=== PATIENT | male | born 1980 | race American Indian/Alaskan Native ===

== ENCOUNTER 2018-12-28 22:34 | Emergency (ER) | payer MEDICAID, OTHER ==
[2018-12-28 23:27] VITALS: BP 116/77; PULSE 96
[2018-12-29] MEDS ORDERED: Sodium Chloride 0.9% 1,000 ML IV ONE (00:35)
[2018-12-29] MEDS ORDERED: Insulin Regular, Human 100 Units/ML 3 ML Vial IV ONE (01:06)
[2018-12-29 01:18] LABS: ANION GAP 15.7; CHLORIDE,CL 88 mmol/L (101-111); SODIUM,NA 129 mmol/L (135-145)
--- NOTE | 2018-12-29 02:15 | EDM.PDOC ---
ED HPI GENERAL MEDICAL PROBLEM - General Chief Complaint: Diabetic Complaint Stated Complaint: DIZZY, SICK Time Seen by Provider: 12/28/18 23:20 Source of Information: Reports: Patient History Limitations: Reports: No Limitations - History of Present Illness INITIAL COMMENTS - FREE TEXT/NARRATIVE: c/o blood sugar being high. Initial insulin start date one week ago. Noted weight loss since August but during workup for gallbladder problems found he was diabetic. Since staerting insulin, blood sugars have been well over 400, tonight at work 586, felt dizzy at time. 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: Other (see below) Other Treatments BUTCHER ASSISTANT: none Right Temporal Pain Score (Numeric/FACES): 4 - Related Data Allergies Allergy/AdvReac Type Severity Reaction Status Date / Time naproxen Allergy Intermediate Hives Verified 12/28/18 23:27 cyclobenzaprine HCl AdvReac Intermediate Stomach Verified 12/28/18 23:27 [From Flexeril] Ache Home Meds: Home Meds Fenofibrate Nanocrystallized [Fenofibrate] 145 mg PO DAILY 12/28/18 [History] Insulin Glarg,Human.Rec.Analog [Lantus] 0 unit SQ BID 12/28/18 [History] Lisinopril 2.5 mg PO DAILY 12/28/18 [History] metFORMIN [Glucophage XR] 500 mg PO BIDMEALS 12/28/18 [History] Past Medical History - Past Health History Medical/Surgical History: Denies Medical/Surgical History Endocrine/Metabolic History: Reports: Diabetes, Type II Social & Family History - Family History Family Medical History: Noncontributory - Tobacco Use Smoking Status *Q: Unknown Ever Smoked - Caffeine Use Caffeine Use: Reports: Tea - Recreational Drug Use Recreational Drug Use: No ED ROS GENERAL - Review of Systems Review Of Systems: ROS reveals no pertinent complaints other than HPI. ED EXAM GENERAL NO PERIP PULSE - Physical Exam Exam: See Below Exam Limited By: No Limitations General Appearance: Alert, No Apparent Distress Eye Exam: Bilateral Eye: EOMI Ears: Normal External Exam, Hearing Grossly Normal Nose: Normal Mucosa Throat/Mouth: Normal Inspection. No: Normal Teeth (poor dentation) Head: Atraumatic, Normocephalic Neck: Normal Inspection Respiratory/Chest: No Respiratory Distress, Lungs Clear Cardiovascular: Normal Peripheral Pulses GI/Abdominal: Soft, Non-Tender Neurological: Alert, Oriented, Normal Cognition Psychiatric: Normal Affect, Normal Mood Skin Exam: Warm, Dry, Intact, Normal Color Course - Vital Signs Last Recorded V/S: Last Vital Signs Temp 97.2 F 12/28/18 23:11 Pulse 96 12/28/18 23:11 Resp 16 12/28/18 23:11 BP 116/77 12/28/18 23:11 Pulse Ox 100 12/28/18 23:11 - Orders/Labs/Meds Orders: Active Orders 24 hr Category Date Time Status Blood Glucose Check, Bedside [RC] ONETIME Care 12/28/18 23:37 Active Glucose [Blood Glucose Check, Bedside] [RC] ONETIME Care 12/29/18 01:54 Active Labs: Laboratory Tests 12/28/18 12/29/18 12/29/18 Range/Units 23:16 00:16 00:50 WBC 6.4 (5.0-10.0) 10^3/uL RBC 4.61 (4.6-6.2) 10^6/uL Hgb 13.7 L (14.0-18.0) g/dL Hct 39.1 L (40.0-54.0) % MCV 84.8 (80-100) fL MCH 29.7 (27.0-34.0) pg MCHC 35.0 (33.0-35.0) g/dL Plt Count 239 (150-450) 10^3/uL Neut % (Auto) 45.2 (42.2-75.2) % Lymph % (Auto) 44.9 (20.5-50.1) % [place] % (Auto) 7.9 (2-8) % Eos % (Auto) 1.7 (1.0-3.0) % Baso % (Auto) 0.3 (0.0-1.0) % Sodium (135-145) mmol/L Potassium (3.6-5.0) mmol/L Chloride (101-111) mmol/L Carbon Dioxide (21.0-31.0) mmol/L Anion Gap BUN (7-18) mg/dL Creatinine (0.6-1.3) mg/dL Est Cr Clr Drug Dosing mL/min Estimated GFR (MDRD) BUN/Creatinine Ratio Glucose (74-105) mg/dL POC Glucose 419 H* 408 H* (70-105) mg/dl Lactic Acid (0.5-2.2) mmol/L Calcium (8.4-10.2) mg/dl Total Bilirubin (0.2-1.0) mg/dL AST (10-42) IU/L ALT (10-60) IU/L Alkaline Phosphatase (42-121) IU/L Total Protein (6.7-8.2) g/dl Albumin (3.2-5.5) g/dl Globulin Albumin/Globulin Ratio Ketones 12/29/18 12/29/18 12/29/18 Range/Units 00:50 00:50 02:08 WBC (5.0-10.0) 10^3/uL RBC (4.6-6.2) 10^6/uL Hgb (14.0-18.0) g/dL Hct (40.0-54.0) % MCV (80-100) fL MCH (27.0-34.0) pg MCHC (33.0-35.0) g/dL Plt Count (150-450) 10^3/uL Neut % (Auto) (42.2-75.2) % Lymph % (Auto) (20.5-50.1) % [place] % (Auto) (2-8) % Eos % (Auto) (1.0-3.0) % Baso % (Auto) (0.0-1.0) % Sodium 129 L (135-145) mmol/L Potassium 3.7 (3.6-5.0) mmol/L Chloride 88 L (101-111) mmol/L Carbon Dioxide 29.0 (21.0-31.0) mmol/L Anion Gap 15.7 BUN 18 (7-18) mg/dL Creatinine 0.8 (0.6-1.3) mg/dL Est Cr Clr Drug Dosing 119.94 mL/min Estimated GFR (MDRD) > 60 BUN/Creatinine Ratio 22.50 Glucose 396 H (74-105) mg/dL POC Glucose 274 H (70-105) mg/dl Lactic Acid 0.8 (0.5-2.2) mmol/L Calcium 8.7 (8.4-10.2) mg/dl Total Bilirubin 1.0 (0.2-1.0) mg/dL AST 18 (10-42) IU/L ALT 16 (10-60) IU/L Alkaline Phosphatase 117 (42-121) IU/L Total Protein 7.1 (6.7-8.2) g/dl Albumin 3.9 (3.2-5.5) g/dl Globulin 3.2 Albumin/Globulin Ratio 1.22 Ketones Negative Meds: Medications Discontinued Medications Generic Name Dose Route Start Last Admin Trade Name Freq PRN Reason Stop Dose Admin Sodium Chloride 1,000 mls @ 500 mls/hr 12/29/18 00:35 12/29/18 00:52 Normal Saline IV 12/29/18 02:34 500 mls/hr .BOLUS ONE Administration Insulin Human Regular 5 unit 12/29/18 01:06 12/29/18 01:15 Humulin R IV 12/29/18 01:07 5 units ONETIME ONE Administration Departure - Departure Time of Disposition: 02:13 Disposition: Home, Self-Care 01 Condition: Good Clinical Impression: Hyperglycemia - Discharge Information *PRESCRIPTION DRUG MONITORING PROGRAM REVIEWED*: No *COPY OF PRESCRIPTION DRUG MONITORING REPORT IN PATIENT GUILLERMO: No Instructions: Hyperglycemia Forms: ED Department Discharge Additional Instructions: watch diet check blood sugars Increase insulin to 12 units at bed - My Orders Last 24 Hours: My Active Orders 12/28/18 23:37 Blood Glucose Check, Bedside [RC] ONETIME 12/29/18 01:54 Glucose [Blood Glucose Check, Bedside] [] ONETIME - Assessment/Plan Last 24 Hours: My Active Orders 12/28/18 23:37 Blood Glucose Check, Bedside [RC] ONETIME 12/29/18 01:54 Glucose [Blood Glucose Check, Bedside] [] ONETIME
== END 2018-12-29 02:23 | disposition home or self-care (01) ==
LOC: DL.ED 22:34
DX: E11.65 Type 2 diabetes mellitus with hyperglycemia (principal); Z79.899 Other long term (current) drug therapy; Z88.6 Allergy status to analgesic agent; Z88.8 Allergy status to other drugs, medicaments and biological substances; Z79.4 Long term (current) use of insulin
CPT/HCPCS: 36415; 80053; 82009; 82962; 83605; 85025; 96360; 99284; J1815; J7030

== ENCOUNTER 2019-01-15 06:49 | Day surgery (SDC) | payer MEDICAID, OTHER ==
[~2019-01-15 06:49] MED LIST: Dextrose 5%-0.45% NaCl 1,000 ML IV SCH; Midazolam 1 MG/ML 2 ML SDV ONE; Sodium Chloride 0.9% 10 ML Syringe FLUSH PRN; fentaNYL 100 MCG/2 ML SDV ONE
[2019-01-15] MEDS ORDERED: Midazolam 1 MG/ML 2 ML SDV IV ONE ×7 (06:50→08:32)
[2019-01-15] MEDS ORDERED: fentaNYL 100 MCG/2 ML SDV IV ONE ×3 (06:50→08:25)
[2019-01-15] MEDS ORDERED: Midazolam 1 MG/ML 2 ML SDV ONE (09:04)
[2019-01-15 10:04] VITALS: BP 84/61; PULSE 71
--- NOTE | 2019-01-15 15:04 | OR ---
DATE: 01/15/2019 PROCEDURE PERFORMED: Total colonoscopy, NBI, and cold snare polypectomy. INSTRUMENT USED: [id number] Olympus video colonoscope. PREMEDICATIONS: Fentanyl 100 mcg intravenous, Versed 4 mg intravenous. The procedure was done under pulse oximetry, BP recording, and awake overnight monitor. INDICATION: The patient with rectal bleeding, abdominal pain, and progressive weight loss. Colonoscopic examination is done for detection of any polypoid lesions and removal, endoscopic hemostasis therapy if needed. DESCRIPTION OF PROCEDURE: Initial rectal exam was unremarkable. Rigid anoscopy showed small internal hemorrhoids with no bleeding from them. The colonoscope was passed with ease up to the ileocecal area. Photographs were taken of the cecum identified by landmarks of appendiceal orifice and double-bulged ileocecal folds. In the distal descending colon, 5 mm sized benign-appearing polyp was noted. NBI views were obtained. Cold snare polypectomy was done. The tissue was retrieved and sent for histopathology. No bleeding was noted from any of the visualized areas at the commencement of the examination. There was large amount of solid fecal material, especially in the right colon preventing adequate visualization of the areas. [place] preparation scale 1 in most of the regions. No stricture. No vascular ectasia. No large isolated ulcerations seen. No evidence of diffuse inflammatory bowel disease in the form of friability, contact bleeding, or ulcerations. Probing the proximal sides of the folds and flexures using adequate distention and clearing up the stool material, withdrawal of the scope was made. No bleeding was noted from any of the visualized areas at the completion of examination. IMPRESSION: 1. Internal hemorrhoids. 2. Descending colon polyp. The patient tolerated the procedure well. [facility] /[id number]
== END 2019-01-15 10:50 | disposition home or self-care (01) ==
LOC: DL.ENDO 06:49
PROVIDERS: ATTEND Internal Medicine Gastroenterology
DX: K62.5 Hemorrhage of anus and rectum (principal); D12.4 Benign neoplasm of descending colon; K64.8 Other hemorrhoids; E11.9 Type 2 diabetes mellitus without complications; E78.1 Pure hyperglyceridemia; E66.09 Other obesity due to excess calories; Z88.8 Allergy status to other drugs, medicaments and biological substances; Z88.6 Allergy status to analgesic agent; Z68.27 Body mass index [BMI] 27.0-27.9, adult
CPT/HCPCS: 45385; J2250; J3010; J7042

== ENCOUNTER 2019-11-03 16:25 | Emergency (ER) | payer MEDICAID, OTHER ==
[2019-11-03 17:09] VITALS: BP 128/77; PULSE 88
--- NOTE | 2019-11-03 17:16 | CR ---
PROCEDURE INFORMATION: Exam: XR Chest, 1 View Exam date and time: 11/03/2019 5:07 PM Age: 39 years old Clinical indication: Other: Recurrent near syncope TECHNIQUE: Imaging protocol: XR of the chest Views: 1 view. COMPARISON: No relevant prior studies available. FINDINGS: Lungs: Unremarkable. No consolidation. Pleural space: Unremarkable. No pleural effusion. No pneumothorax. Heart/Mediastinum: Unremarkable. No cardiomegaly. Bones/joints: Unremarkable. IMPRESSION: No acute findings.
[2019-11-03] MEDS ORDERED: Meclizine 12.5 MG Tab PO ONE ×2 (17:19→17:26)
[2019-11-03] MEDS ORDERED: Sodium Chloride 0.9% 10 ML Syringe FLUSH PRN (17:19)
[2019-11-03] MEDS ORDERED: Sodium Chloride 0.9% 1,000 ML IV ONE (17:19)
[2019-11-03] MEDS ORDERED: Dexamethasone 4 MG/ML SDV IVPUSH ONE (17:20)
[2019-11-03 17:28] LABS: ANION GAP 12.3 mEq/L (7-13); CHLORIDE,CL 99 mmol/L (98-107); SODIUM,NA 135 mmol/L (136-145)
[2019-11-03] MEDS ORDERED: Sodium Chloride 0.9% 1,000 ML IV SCH (17:30)
--- NOTE | 2019-11-03 18:10 | EDM.PDOC ---
Scribed by Chen Courtney 11/03/19 [id number] for Phillip Daniels MD ED HPI GENERAL MEDICAL PROBLEM - General Chief Complaint: Neuro Symptoms/Deficits Stated Complaint: LIGHTHEADED SEEING WHITE SPOTS Time Seen by Provider: 11/03/19 16:57 Source of Information: Reports: Patient, RN, RN Notes Reviewed History Limitations: Reports: No Limitations - History of Present Illness INITIAL COMMENTS - FREE TEXT/NARRATIVE: Patient presents to ED by POV stating he was at work and began to have intermittent dizziness and seeing occasional spots. Denies any head injury, headache or visual changes. Patient states that he had "room spin dizziness" and felt that he might tip over because he could not tell, which end was up. He reports having intense nausea associated with the dizziness but did not vomit. Denies any history of vertigo, sinus or ear problems. Patient states that when he gets dizzy he seems to always tip to the left. Onset: Today Duration: Constant Severity: Moderate Improves with: Reports: None Worsens with: Reports: None Associated Symptoms: Reports: No Other Symptoms - Related Data Allergies Allergy/AdvReac Type Severity Reaction Status Date / Time naproxen Allergy Intermediate Hives Verified 11/03/19 16:54 cyclobenzaprine HCl AdvReac Intermediate Stomach Verified 11/03/19 16:54 [From Flexeril] Ache methocarbamol AdvReac Intermediate Nausea Verified 11/03/19 16:54 Home Meds: Home Meds Fenofibrate Nanocrystallized [Fenofibrate] 145 mg PO DAILY 12/28/18 [History] Insulin Glarg,Human.Rec.Analog [Lantus] 12 unit SQ BEDTIME 12/28/18 [History] lisinopriL [Lisinopril] 2.5 mg PO DAILY 12/28/18 [History] metFORMIN [Glucophage XR] 1,000 mg PO BIDMEALS 12/28/18 [History] Buprenorphine HCl/Naloxone HCl [Zubsolv 0.7-0.18 mg Tablet Sl] 1 tab SL ASDIRECTED 01/13/19 [History] Insulin Aspart [NovoLOG] 10 units SQ TIDMEALS 01/13/19 [History] Ondansetron [Zofran] 4 mg PO Q8H PRN 01/13/19 [History] Pantoprazole Sodium [Protonix] 40 mg PO BID 01/13/19 [History] Bismuth Subsalicylate [Pepto-Bismol] 262 mg PO QID 02/25/19 [History] Tetracycline HCl 500 mg PO QID 02/25/19 [History] metroNIDAZOLE [Metronidazole] 500 mg PO TID 02/25/19 [History] Past Medical History - Past Health History Medical/Surgical History: Denies Medical/Surgical History HEENT History: Reports: None Other HEENT History: missing front teeth Cardiovascular History: Reports: High Cholesterol, Hypertension Respiratory History: Reports: None Gastrointestinal History: Reports: GERD, Other (See Below) Other Gastrointestinal History: small amount bright red blood in stool Genitourinary History: Reports: None Musculoskeletal History: Reports: Back Pain, Chronic, Other (See Below) Other Musculoskeletal History: LEFT KNEE PAIN Neurological History: Reports: None Psychiatric History: Reports: Anxiety Endocrine/Metabolic History: Reports: Diabetes, Type II Hematologic History: Reports: None Immunologic History: Reports: None Oncologic (Cancer) History: Reports: None Dermatologic History: Reports: None - Infectious Disease History Infectious Disease History: Reports: Chicken Pox - Past Surgical History Head Surgeries/Procedures: Reports: None HEENT Surgical History: Reports: None Cardiovascular Surgical History: Reports: None GI Surgical History: Reports: Colonoscopy, EGD Male Surgical History: Reports: None Musculoskeletal Surgical History: Reports: Arthroscopic Procedure Social & Family History - Family History Family Medical History: Noncontributory - Caffeine Use Caffeine Use: Reports: Energy Drinks Other Caffeine Use: 1 a week ED ROS GENERAL - Review of Systems Review Of Systems: Comprehensive ROS is negative, except as noted in HPI. ED EXAM, NEURO - Physical Exam Exam: See Below Exam Limited By: No Limitations General Appearance: Alert, WD/WN, No Apparent Distress Eye Exam: Bilateral Eye: EOMI, Nystagmus (left lateral gaze), PERRL Ears: Normal External Exam, Normal Canal, Hearing Grossly Normal, Normal TMs Nose: Normal Inspection, Normal Mucosa, No Blood Throat/Mouth: Normal Lips, Normal Oropharynx, Normal Voice, No Airway Compromise , Other (dry oral membranes) Head Exam: Atraumatic, Normocephalic Neck: Normal Inspection, Supple, Non-Tender, Full Range of Motion. No: Carotid Bruit, Lymphadenopathy (L), Lymphadenopathy (R) Respiratory/Chest: No Respiratory Distress, Lungs Clear, Normal Breath Sounds, No Accessory Muscle Use, Chest Non-Tender Cardiovascular: Normal Peripheral Pulses, Regular Rate, Rhythm, No Edema, No Gallop, No JVD, No Murmur, No Rub GI/Abdominal: Normal Bowel Sounds, Soft, Non-Tender, No Organomegaly, No Distention, No Abnormal Bruit, No Mass Neurological: Normal Dorsiflexion, Normal Plantar Flexion, No Motor/Sensory Deficits, Oriented x 3, Other (CN II-XII intact with the exception of left lateral gaze nystagmus which was reproducible and induced dizziness. ) Back Exam: Normal Inspection Extremities: Normal Inspection Psychiatric: Normal Affect, Normal Mood Skin Exam: Warm, Dry, Intact, Normal Color, No Rash EKG INTERPRETATION EKG Date: 11/03/19 Time: 16:55 Rhythm: Other (sinus rhythm) Rate (Beats/Min): 76 [place]: LAD-Left [place] Deviation P-Wave: Present QRS: Normal ST-T: Normal QT: Normal Course - Vital Signs Last Recorded V/S: Last Vital Signs Temp 98.1 F 11/03/19 16:56 Pulse 88 11/03/19 16:56 Resp 18 11/03/19 16:56 BP 128/77 11/03/19 16:56 Pulse Ox 99 11/03/19 16:56 Orthostatic Blood Pressure [ 134/82 Standing] Orthostatic Blood Pressure [ 125/80 Sitting] Orthostatic Blood Pressure [ 128/77 Supine] - Orders/Labs/Meds Orders: Active Orders 24 hr Category Date Time Status EKG Documentation Completion [RC] STAT Care 11/03/19 16:54 Active Peripheral IV Care [RC] . DIRECTED Care 11/03/19 17:19 Active UA RFX TASHI AND CULT IF INDIC [URIN] Stat Lab 11/03/19 16:55 Ordered Sodium Chloride 0.9% [Normal Saline] 1,000 ml Med 11/03/19 17:19 Active IV .BOLUS Sodium Chloride 0.9% [Normal Saline] 1,000 ml Med 11/03/19 17:30 Active IV ASDIRECTED Sodium Chloride 0.9% [Saline Flush] Med 11/03/19 17:19 Active 10 ml FLUSH ASDIRECTED PRN Peripheral IV Insertion Adult [OM.PC] Stat Oth 11/03/19 17:16 Ordered Medication Orders Sodium Chloride (Normal Saline) 1,000 mls @ 999 mls/hr IV ASDIRECTED LO Last Admin: 11/03/19 17:18 Dose: 999 mls/hr Documented by: LASHONDA Sodium Chloride (Normal Saline) 1,000 mls @ 999 mls/hr IV .BOLUS ONE Stop: 11/03/19 18:19 Last Admin: 11/03/19 17:26 Dose: Not Given Documented by: LASHONDA Sodium Chloride (Saline Flush) 10 ml FLUSH ASDIRECTED PRN PRN Reason: Keep Vein Open Last Admin: 11/03/19 17:49 Dose: 10 ml Documented by: LASHONDA Labs: Laboratory Tests 11/03/19 11/03/19 11/03/19 Range/Units 17:01 17:01 17:01 WBC 9.0 (5.0-10.0) 10^3/uL RBC 4.92 (4.6-6.2) 10^6/uL Hgb 13.7 L (14.0-18.0) g/dL Hct 41.1 (40.0-54.0) % MCV 83.5 (80-100) fL MCH 27.8 (27.0-34.0) pg MCHC 33.3 (33.0-35.0) g/dL Plt Count 302 (150-450) 10^3/uL Neut % (Auto) 68.9 (42.2-75.2) % Lymph % (Auto) 24.2 (20.5-50.1) % [place] % (Auto) 5.8 (2-8) % Eos % (Auto) 0.8 L (1.0-3.0) % Baso % (Auto) 0.3 (0.0-1.0) % D-Dimer, Quantitative < 100 (0-400) ng/mL Sodium 135 L (136-145) mmol/L Potassium 4.3 (3.5-5.1) mmol/L Chloride 99 (98-107) mmol/L Carbon Dioxide 28 (21-32) mmol/L Anion Gap 12.3 (7-13) mEq/L BUN 12 (7-18) mg/dL Creatinine 1.24 (0.70-1.30) mg/dL Est Cr Clr Drug Dosing 76.61 mL/min Estimated GFR (MDRD) > 60 BUN/Creatinine Ratio 9.7 (No establ ref range) Glucose 234 H (74-99) mg/dL Calcium 8.7 (8.5-10.1) mg/dL Total Bilirubin 0.5 (0.2-1.0) mg/dL AST 25 (15-37) U/L ALT 34 (16-63) U/L Alkaline Phosphatase 149 H (46-116) U/L Troponin I < 0.017 (0.000-0.056) ng/mL Total Protein 7.8 (6.4-8.2) g/dL Albumin 3.7 (3.4-5.0) g/dL Globulin 4.1 Albumin/Globulin Ratio 0.9 Meds: Medications Generic Name Dose Route Start Last Admin Trade Name Freq PRN Reason Stop Dose Admin Sodium Chloride 1,000 mls @ 999 mls/hr 11/03/19 17:30 11/03/19 17:18 Normal Saline IV 999 mls/hr ASDIRECTED LO Administration Sodium Chloride 1,000 mls @ 999 mls/hr 11/03/19 17:19 11/03/19 17:26 Normal Saline IV 11/03/19 18:19 Not Given .BOLUS ONE Sodium Chloride 10 ml 11/03/19 17:19 11/03/19 17:49 Saline Flush FLUSH 10 ml ASDIRECTED PRN Administration Keep Vein Open Discontinued Medications Generic Name Dose Route Start Last Admin Trade Name [place] PRN Reason Stop Dose Admin Dexamethasone 10 mg 11/03/19 17:20 11/03/19 17:25 Dexamethasone IVPUSH 11/03/19 17:21 10 mg ONETIME ONE Administration Diazepam 5 mg 11/03/19 17:20 11/03/19 17:25 Valium IVPUSH 11/03/19 17:21 5 mg ONETIME ONE Administration Meclizine HCl 25 mg 11/03/19 17:19 Antivert PO 11/03/19 17:20 ONETIME ONE Meclizine HCl 25 mg 11/03/19 17:26 11/03/19 17:27 Antivert PO 11/03/19 17:27 25 mg ONETIME ONE Administration - Radiology Interpretation Free Text/Narrative:: [facility] Final Radiology Report Call: [phone] assistance Online chat: [email or web address] Name: FRANCA BRUSH Age: 39Years M Date: 11/03/2019 SSN: -- : [id number] Study: CR CHEST 1V FRONTAL Requesting Physician: PHILLIP DANIELS Images: 1 Addl Studies: Provided Clinical History: recurrent near syncope Contrast: Contrast Medium: Contrast Amount: Contrast Method: CONFIDENTIALITY STATEMENT This report is intended only for use by the referring physician, and only in accordance with law. If you received this in error, call [phone]. Page 1 of 1 PROCEDURE INFORMATION: Exam: XR Chest, 1 View Exam date and time: 11/03/2019 5:07 PM Age: 39 years old Clinical indication: Other: Recurrent near syncope TECHNIQUE: Imaging protocol: XR of the chest Views: 1 view. COMPARISON: No relevant prior studies available. FINDINGS: Lungs: Unremarkable. No consolidation. Pleural space: Unremarkable. No pleural effusion. No pneumothorax. Heart/Mediastinum: Unremarkable. No cardiomegaly. Bones/joints: Unremarkable. IMPRESSION: No acute findings. Thank you for allowing us to participate in the care of your patient. Dictated and Authenticated by: Sharri Saucedo MD 11/03/2019 5:16 PM Central Time ([place] & [place]) Departure - Departure Time of Disposition: 18:08 Disposition: Home, Self-Care 01 Condition: Good Clinical Impression: Vertigo - Discharge Information *PRESCRIPTION DRUG MONITORING PROGRAM REVIEWED*: Not Applicable *COPY OF PRESCRIPTION DRUG MONITORING REPORT IN PATIENT GUILLERMO: Not Applicable Instructions: Vertigo, Yozs-sn-Dyam Forms: ED Department Discharge Additional Instructions: RX: Meclizine 25mg. Rest and drink plenty of water. Follow up in clinic in 2 to 3 days for recheck. Sepsis Event Note (ED) - Focused Exam Vital Signs: Vital Signs Temp Pulse Resp BP Pulse Ox 11/03/19 16:56 98.1 F 88 18 128/77 99 - My Orders Last 24 Hours: My Active Orders 11/03/19 16:54 EKG Documentation Completion [RC] STAT 11/03/19 16:55 UA RFX TASHI AND CULT IF INDIC [URIN] Stat 11/03/19 17:16 Peripheral IV Insertion Adult [OM.PC] Stat 11/03/19 17:19 Peripheral IV Care [RC] . DIRECTED Sodium Chloride 0.9% [Normal Saline] 1,000 ml IV .BOLUS Sodium Chloride 0.9% [Saline Flush] 10 ml FLUSH ASDIRECTED PRN 11/03/19 17:30 Sodium Chloride 0.9% [Normal Saline] 1,000 ml IV ASDIRECTED - Assessment/Plan Last 24 Hours: My Active Orders 11/03/19 16:54 EKG Documentation Completion [RC] STAT 11/03/19 16:55 UA RFX TASHI AND CULT IF INDIC [URIN] Stat 11/03/19 17:16 Peripheral IV Insertion Adult [OM.PC] Stat 11/03/19 17:19 Peripheral IV Care [RC] . DIRECTED Sodium Chloride 0.9% [Normal Saline] 1,000 ml IV .BOLUS Sodium Chloride 0.9% [Saline Flush] 10 ml FLUSH ASDIRECTED PRN 11/03/19 17:30 Sodium Chloride 0.9% [Normal Saline] 1,000 ml IV ASDIRECTED I have read and agree with the documentation that has been completed regarding this visit. By signing this record, I attest that the documentation was completed in my physical presence and is an accurate record of the encounter.
== END 2019-11-03 18:15 | disposition home or self-care (01) ==
LOC: DL.ED 16:25
DX: R42 Dizziness and giddiness (principal); E78.00 Pure hypercholesterolemia, unspecified; I10 Essential (primary) hypertension; K21.9 Gastro-esophageal reflux disease without esophagitis; E11.9 Type 2 diabetes mellitus without complications; Z79.4 Long term (current) use of insulin; Z79.899 Other long term (current) drug therapy; Z88.8 Allergy status to other drugs, medicaments and biological substances
CPT/HCPCS: 36415; 71045; 80053; 84484; 85025; 85379; 93005; 96361; 96374; 96375; 99284; A9270; J1100; J3360; J7030

== ENCOUNTER 2020-07-18 16:53 | Emergency (ER) | payer MEDICAID, OTHER ==
--- NOTE | 2020-07-18 19:10 | EDM.PDOC ---
ED HPI GENERAL MEDICAL PROBLEM - General Chief Complaint: Back Pain or Injury Stated Complaint: LOWER BACK PAIN Time Seen by Provider: 07/18/20 18:59 Source of Information: Reports: Patient, RN History Limitations: Reports: No Limitations - History of Present Illness INITIAL COMMENTS - FREE TEXT/NARRATIVE: ED with c/o low back pain and radiation to right buttock. Increased pain with standing. Denies injury. Onset last shira while getting out of chair and sudden sharp pain. Similar pain few years ago from herniated disc and just went away. no weakness or numbness. Ibuprofen 600mg around 3-4 today. Lower Back Pain Score (Numeric/FACES): 5 - Related Data Allergies Allergy/AdvReac Type Severity Reaction Status Date / Time naproxen Allergy Intermediate Hives Verified 07/18/20 17:43 cyclobenzaprine HCl AdvReac Intermediate Stomach Verified 07/18/20 17:43 [From Flexeril] Ache methocarbamol AdvReac Intermediate Nausea Verified 07/18/20 17:43 Home Meds: Home Meds Fenofibrate Nanocrystallized [Fenofibrate] 145 mg PO DAILY 12/28/18 [History] Insulin Glarg,Human.Rec.Analog [Lantus] 50 unit SQ BEDTIME 12/28/18 [History] lisinopriL [Lisinopril] 2.5 mg PO DAILY 12/28/18 [History] metFORMIN [Glucophage XR] 1,000 mg PO BIDMEALS 12/28/18 [History] Buprenorphine HCl/Naloxone HCl [Zubsolv 0.7-0.18 mg Tablet Sl] 1 tab SL ASDIRECTED 01/13/19 [History] Insulin Aspart [NovoLOG] 20 units SQ TIDMEALS 01/13/19 [History] Ondansetron [Zofran] 4 mg PO Q8H PRN 01/13/19 [History] Pantoprazole Sodium [Protonix] 40 mg PO BID 01/13/19 [History] Bismuth Subsalicylate [Pepto-Bismol] 262 mg PO QID 02/25/19 [History] Tetracycline HCl 500 mg PO QID 02/25/19 [History] metroNIDAZOLE [Metronidazole] 500 mg PO TID 02/25/19 [History] Past Medical History - Past Health History Medical/Surgical History: Denies Medical/Surgical History HEENT History: Reports: None Other HEENT History: missing front teeth Cardiovascular History: Reports: High Cholesterol, Hypertension Respiratory History: Reports: None Gastrointestinal History: Reports: GERD, Other (See Below) Other Gastrointestinal History: small amount bright red blood in stool Genitourinary History: Reports: None Musculoskeletal History: Reports: Back Pain, Chronic, Other (See Below) Other Musculoskeletal History: LEFT KNEE PAIN Neurological History: Reports: None Psychiatric History: Reports: Addiction, Anxiety Endocrine/Metabolic History: Reports: Diabetes, Type II Hematologic History: Reports: None Immunologic History: Reports: None Oncologic (Cancer) History: Reports: None Dermatologic History: Reports: None - Infectious Disease History Infectious Disease History: Reports: Chicken Pox - Past Surgical History Head Surgeries/Procedures: Reports: None HEENT Surgical History: Reports: None Cardiovascular Surgical History: Reports: None GI Surgical History: Reports: Colonoscopy, EGD Male Surgical History: Reports: None Musculoskeletal Surgical History: Reports: Arthroscopic Procedure Social & Family History - Family History Family Medical History: No Pertinent Family History - Tobacco Use Tobacco Use Status *Q: Never Tobacco User Second Hand Smoke Exposure: No - Caffeine Use Caffeine Use: Reports: Energy Drinks Other Caffeine Use: 1 a week ED ROS GENERAL - Review of Systems Review Of Systems: Comprehensive ROS is negative, except as noted in HPI. ED EXAM,LOWER BACK PAIN/INJURY - Physical Exam Exam: See Below Exam Limited By: No Limitations General Appearance: Alert, Mild Distress Eye Exam: Bilateral Eye: EOMI Ears: Normal External Exam Nose: Normal Inspection Throat/Mouth: Normal Inspection Head: Atraumatic, Normocephalic Neck: Normal Inspection Respiratory/Chest: No Respiratory Distress Cardiovascular: Normal Peripheral Pulses, Irregularly Irregular GI/Abdominal: Normal Bowel Sounds (Male) Exam: Normal Inspection Back Exam: Vertebral Tenderness (mild low lumbar and right SI) Neurological: Alert, Normal Dorsiflexion, Normal Plantar Flexion, Normal Gait, Normal Reflexes, No Motor/Sensory Deficits, Oriented x 3 Psychiatric: Flat Affect Skin Exam: Warm, Dry, Intact, Normal Color Course - Vital Signs Last Recorded V/S: Last Vital Signs Temp 98.4 F 07/18/20 17:08 Pulse 85 07/18/20 20:02 Resp 20 07/18/20 20:02 BP 128/81 07/18/20 20:02 Pulse Ox 95 07/18/20 20:02 - Orders/Labs/Meds Meds: Medications Discontinued Medications Generic Name Dose Route Start Last Admin Trade Name Linnea PRDurga Reason Stop Dose Admin Orphenadrine Citrate 60 mg 07/18/20 19:21 07/18/20 20:01 Orphenadrine 60 Mg/2 Ml Inj IM 07/18/20 19:22 60 mg ONETIME ONE Administration Prednisone 20 mg 07/18/20 19:22 07/18/20 20:01 Prednisone 20 Mg Tab PO 07/18/20 19:23 20 mg ONETIME ONE Administration Departure - Departure Time of Disposition: 20:14 Disposition: Home, Self-Care 01 Condition: Good Clinical Impression: Back pain of lumbar region with sciatica - Discharge Information *PRESCRIPTION DRUG MONITORING PROGRAM REVIEWED*: Yes *COPY OF PRESCRIPTION DRUG MONITORING REPORT IN PATIENT GUILLERMO: No Instructions: Sciatica, [id number] Referrals: PCP,None [Primary Care Provider] - Forms: ED Department Discharge Additional Instructions: rest ice to low back ibuprofen 600mg alternate with tylenol 650mg every 4 hours clinic follow up this week to set up for MRI if not improving Sepsis Event Note (ED) - Evaluation Sepsis Screening Result: No Definite Risk - Focused Exam Vital Signs: Vital Signs Temp Pulse Resp BP Pulse Ox 07/18/20 20:02 85 20 128/81 95 07/18/20 17:08 98.4 F 98 16 131/88 97
[2020-07-18] MEDS ORDERED: Orphenadrine 60 MG/2 ML Inj IM ONE (19:21)
[2020-07-18] MEDS ORDERED: predniSONE 20 MG Tab PO ONE (19:22)
[2020-07-18 20:03] VITALS: BP 128/81; PULSE 85
== END 2020-07-18 20:20 | disposition home or self-care (01) ==
LOC: DL.ED 16:53
DX: M54.41 Lumbago with sciatica, right side (principal); Z88.5 Allergy status to narcotic agent; Z88.8 Allergy status to other drugs, medicaments and biological substances
CPT/HCPCS: 96372; 99283; J2360; J7512

== ENCOUNTER 2021-12-25 20:32 | Emergency (ER) | payer MEDICAID ==
[2021-12-25] MEDS ORDERED: Ibuprofen 400 MG Tab PO ONE (23:30)
[2021-12-26] MEDS ORDERED: Azithromycin 250 MG Tab PO ONE (00:42)
[2021-12-26] MEDS ORDERED: Amoxicillin/Clavulanate K 875-125 MG Tab PO ONE (00:42)
[2022-01-21 10:39] LABS: CHLORIDE,CL 98 mmol/L (98-107); ESTIMATED GFR 83 mL/min (>=60); SODIUM,NA 134 mmol/L (136-145)
[2022-01-21 10:44] LABS: AMPHETAMINES,URINE NEGATIVE (NEGATIVE); BARBITURATES,URINE NEGATIVE (NEGATIVE); BENZODIAZEPINE,URINE NEGATIVE (NEGATIVE); MDMA (ECSTASY), URINE NEGATIVE (NEGATIVE); METHADONE,URINE NEGATIVE (NEGATIVE); METHAMPHETAMINES,URINE NEGATIVE (NEGATIVE); OPIATES,URINE NEGATIVE (NEGATIVE); OXYCODONE,URINE NEGATIVE (NEGATIVE); PHENCYCLIDINE,URINE NEGATIVE (NEGATIVE); TCA,URINE NEGATIVE (NEGATIVE)
== END 2021-12-26 00:48 | disposition home or self-care (01) ==
LOC: DL.ED 20:32
DX: J18.9 Pneumonia, unspecified organism (principal); E11.9 Type 2 diabetes mellitus without complications; Z20.822 Contact with and (suspected) exposure to COVID-19
CPT/HCPCS: 36415; 71045; 80053; 80305; 80307; 81001; 82150; 83605; 83690; 84145; 84484; 85027; 86140; 87635; 99285; A9270; 93005; 93010; 99284; U0002

== ENCOUNTER 2022-09-18 23:38 | Emergency (ER) | payer MEDICAID ==
[2022-09-18] MEDS ORDERED: Sodium Chloride 0.9% 10 ML Syringe FLUSH PRN (23:46)
[2022-09-18 23:50] VITALS: BP 150/95; PULSE 83
[2022-09-18 23:57] LABS: BASOPHILS PERCENT AUTO 0.2 % (0.0-1.0); EOSINOPHILS PERCENT AUTO 1.8 % (1.0-3.0); HEMATOCRIT 43.9 % (40.0-54.0); HEMOGLOBIN 14.9 g/dL (14.0-18.0); LYMPHOCYTES PERCENT AUTO 35.7 % (20.5-50.1); MEAN CORPUSCULAR HEMOGLOBIN 29.6 pg (27.0-34.0); MEAN CORPUSCULAR HGB CONC 33.9 g/dL (33.0-35.0); MEAN CORPUSCULAR VOLUME 87.1 fL (80-100); MONOCYTES PERCENT AUTO 5.8 % (2-8); NEUTROPHILS PERCENT AUTO 56.5 % (42.2-75.2); PLATELET COUNT,PLT 274 10^3/uL (150-450); RED BLOOD CELL COUNT 5.04 10^6/uL (4.6-6.2)
[2022-09-19] MEDS ORDERED: Nitroglycerin 0.4 MG Tab.SL SL ONE (00:05)
[2022-09-19 00:26] LABS: INR 0.9 (0.9-1.2); PROTHROMBIN TIME 8.9 SEC (9.0-12.0)
[2022-09-19 00:35] LABS: ALBUMIN 3.9 g/dL (3.4-5.0); BILIRUBIN TOTAL 0.5 mg/dL (0.2-1.0); BUN/CREATININE RATIO 18.3 (No establ ref range); C-REACTIVE PROTEIN 1.3 mg/dL (0.0-0.9); CALCIUM 8.7 mg/dL (8.5-10.1); CREATININE 1.2 mg/dL (0.70-1.30); EST CRCL DRUG DOSING (CG) 76.79 mL/min; TSH ULTRASENSITIVE 3.22 uIU/mL (0.36-3.74)
== END 2022-09-19 02:15 | disposition home or self-care (01) ==
LOC: DL.ED 23:38
DX: R07.9 Chest pain, unspecified (principal); I10 Essential (primary) hypertension; K21.9 Gastro-esophageal reflux disease without esophagitis; E11.9 Type 2 diabetes mellitus without complications; Z88.6 Allergy status to analgesic agent; Z88.8 Allergy status to other drugs, medicaments and biological substances; Z79.899 Other long term (current) drug therapy; Z79.4 Long term (current) use of insulin
CPT/HCPCS: 36415; 71045; 80053; 82150; 83690; 83735; 84443; 84484; 85025; 85379; 85610; 86140; 93005; 93010; 99284; J3490

== ENCOUNTER 2023-01-27 19:38 | Emergency (ER) | payer MEDICAID ==
[2023-01-27 20:08] LABS: BASOPHILS PERCENT AUTO 0.1 % (0.0-1.0); EOSINOPHILS PERCENT AUTO 1.8 % (1.0-3.0); HEMATOCRIT 41.3 % (40.0-54.0); HEMOGLOBIN 13.9 g/dL (14.0-18.0); LYMPHOCYTES PERCENT AUTO 43.2 % (20.5-50.1); MEAN CORPUSCULAR HEMOGLOBIN 29.4 pg (27.0-34.0); MEAN CORPUSCULAR HGB CONC 33.7 g/dL (33.0-35.0); MEAN CORPUSCULAR VOLUME 87.3 fL (80-100); MONOCYTES PERCENT AUTO 7.2 % (2-8); NEUTROPHILS PERCENT AUTO 47.7 % (42.2-75.2); PLATELET COUNT,PLT 272 10^3/uL (150-450); RED BLOOD CELL COUNT 4.73 10^6/uL (4.6-6.2); WHITE BLOOD CELL COUNT,WBC 8.9 10^3/uL (5.0-10.0)
[2023-01-27 20:21] VITALS: BP 123/78; PULSE 86
[2023-01-27] MEDS ORDERED: Aspirin 81 MG Tab.Chew PO ONE (20:22)
[2023-01-27 20:29] LABS: A/G RATIO 0.9; ALBUMIN 3.5 g/dL (3.4-5.0); ANION GAP 10.8 mEq/L (7-13); BILIRUBIN TOTAL 0.4 mg/dL (0.2-1.0); BUN/CREATININE RATIO 9.1 (No establ ref range); C-REACTIVE PROTEIN 1.09 ng/dL (<=0.30); CALCIUM 8.5 mg/dL (8.5-10.1); CREATININE 1.54 mg/dL (0.70-1.30); EST CRCL DRUG DOSING (CG) 59.22 mL/min; POTASSIUM,K 3.8 mmol/L (3.5-5.1); PROTEIN TOTAL,TP 7.6 g/dL (6.4-8.2)
[2023-01-27 20:30] LABS: LACTIC ACID 1.2 mmol/L (0.4-2.0)
[2023-01-27] MEDS ORDERED: Lactated Ringers 1,000 ML IV ONE (20:36)
[2023-01-27 20:54] LABS: INR 0.9 (0.9-1.2); PROTHROMBIN TIME 9.1 SEC (9.0-12.0); PTT,PARTIAL THROMBOPLSTIN TIME 26.7 SEC (22.0-34.0)
[2023-01-27 21:00] LABS: CORONAVIRUS COVID-19 NAA NEGATIVE (NEGATIVE); INFLUENZA A NAA NEGATIVE (NEGATIVE); INFLUENZA B NAA NEGATIVE (NEGATIVE); RESPIRATORY SYNCYTIAL VIR NAA NEGATIVE (NEGATIVE)
[2023-01-27 21:43] LABS: AMPHETAMINES,URINE NEGATIVE (NEGATIVE); BARBITURATES,URINE NEGATIVE (NEGATIVE); BENZODIAZEPINE,URINE NEGATIVE (NEGATIVE); MDMA (ECSTASY), URINE NEGATIVE (NEGATIVE); METHADONE,URINE NEGATIVE (NEGATIVE); METHAMPHETAMINES,URINE NEGATIVE (NEGATIVE); OPIATES,URINE NEGATIVE (NEGATIVE); OXYCODONE,URINE NEGATIVE (NEGATIVE); PHENCYCLIDINE,URINE NEGATIVE (NEGATIVE); TCA,URINE NEGATIVE (NEGATIVE)
[2023-01-27 21:45] LABS: APPEARANCE,URINE CLEAR (CLEAR); BILIRUBIN,URINE NEGATIVE (NEGATIVE); COLOR,URINE YELLOW (YELLOW); GLUCOSE,URINE 500 (NEGATIVE); KETONES,URINE NEGATIVE (NEGATIVE); LEUKOCYTE ESTERASE,URINE NEGATIVE (NEGATIVE); NITRITE,URINE NEGATIVE (NEGATIVE); OCCULT BLOOD,URINE NEGATIVE (NEGATIVE); PH,URINE 7.5 (5.0-9.0); PROTEIN,URINE NEGATIVE (NEGATIVE); UROBILINOGEN,URINE 0.2 mg/dL (0.2-1.0)
== END 2023-01-27 22:52 | disposition home or self-care (01) ==
LOC: DL.ED 19:38
DX: E11.649 Type 2 diabetes mellitus with hypoglycemia without coma (principal); E86.0 Dehydration; I24.9 Acute ischemic heart disease, unspecified; N17.9 Acute kidney failure, unspecified; K21.9 Gastro-esophageal reflux disease without esophagitis; I10 Essential (primary) hypertension; Z20.822 Contact with and (suspected) exposure to COVID-19; Z88.5 Allergy status to narcotic agent; Z88.8 Allergy status to other drugs, medicaments and biological substances; Z79.4 Long term (current) use of insulin; Z79.84 Long term (current) use of oral hypoglycemic drugs; Z79.899 Other long term (current) drug therapy
CPT/HCPCS: 0241U; 36415; 71045; 80053; 80305-QW; 81003; 82947; 83605; 83690; 83880; 84484; 85025; 85379; 85610; 85730; 86140; 93005; 93010; 96360; 99284; 99285-25; A9270-GY; J7120

== ENCOUNTER 2023-02-06 18:15 | Emergency (ER) | payer MEDICAID ==
[2023-02-06 20:05] LABS: APPEARANCE,URINE CLEAR (CLEAR); BILIRUBIN,URINE NEGATIVE (NEGATIVE); COLOR,URINE YELLOW (YELLOW); GLUCOSE,URINE >=1000 (NEGATIVE); KETONES,URINE NEGATIVE (NEGATIVE); LEUKOCYTE ESTERASE,URINE NEGATIVE (NEGATIVE); NITRITE,URINE NEGATIVE (NEGATIVE); OCCULT BLOOD,URINE NEGATIVE (NEGATIVE); PROTEIN,URINE NEGATIVE (NEGATIVE)
[2023-02-06 20:42] VITALS: BP 123/80; PULSE 70
== END 2023-02-06 21:07 | disposition home or self-care (01) ==
LOC: DL.ED 18:15
DX: K59.01 Slow transit constipation (principal); E11.9 Type 2 diabetes mellitus without complications; Z79.84 Long term (current) use of oral hypoglycemic drugs; Z79.4 Long term (current) use of insulin; Z79.899 Other long term (current) drug therapy; Z88.6 Allergy status to analgesic agent; Z88.8 Allergy status to other drugs, medicaments and biological substances; Z86.16 Personal history of COVID-19; F17.210 Nicotine dependence, cigarettes, uncomplicated
CPT/HCPCS: 74019; 81003; 99284

== ENCOUNTER 2025-01-14 20:28 | Emergency (ER) | payer OTHER ==
[2025-01-14] MEDS: Orphenadrine 60 MG/2 ML Inj IM ONE (23:00)
[2025-01-14] MEDS: Ketorolac 30 MG/ML SDV IM ONE (23:00)
[2025-01-14 23:38] VITALS: BP 121/78; PULSE 98
== END 2025-01-14 23:03 | disposition home or self-care (01) ==
LOC: DL.ED 20:28
DX: F41.9 Anxiety disorder, unspecified (principal); E78.00 Pure hypercholesterolemia, unspecified; E11.9 Type 2 diabetes mellitus without complications; Z86.16 Personal history of COVID-19; Z88.8 Allergy status to other drugs, medicaments and biological substances; Z79.4 Long term (current) use of insulin; Z79.899 Other long term (current) drug therapy; V89.2XXA Person injured in unspecified motor-vehicle accident, traffic, initial encounter
CPT/HCPCS: 36415; 71046; 84484; 93005; J1885; J2360